=== PATIENT | female | born 1955 | race American Indian/Alaskan Native ===

== ENCOUNTER 2017-09-20 10:38 | Inpatient (IN) | payer OTHER, MEDICAID ==
[2017-09-20] MEDS ORDERED: Albuterol/Ipratropium 3.0-0.5 MG/3 ML Neb Soln NEB ONE (11:03)
[2017-09-20 12:54] LABS: CHLORIDE,CL 99 mmol/L (101-111); SODIUM,NA 134 mmol/L (135-145)
[2017-09-20] MEDS ORDERED: Iopamidol 612 MG/ML 75 ML Bottle IVPUSH ONE (12:55)
[2017-09-20] MEDS ORDERED: Levofloxacin 500 MG Tab PO ONE (13:58)
--- NOTE | 2017-09-20 14:30 | EDM.PDOC ---
Scribed by Velvet Wiley 09/20/17 [id number] for Peggy Patten PA-C ED HPI GENERAL MEDICAL PROBLEM - General Chief Complaint: Respiratory Problem Stated Complaint: HARD TIME BREATHING HAS COLD CHEST HURTIN no phone Time Seen by Provider: 09/20/17 12:00 Source of Information: Reports: Patient, RN, RN Notes Reviewed History Limitations: Reports: No Limitations - History of Present Illness INITIAL COMMENTS - FREE TEXT/NARRATIVE: Patient presents with cough for 2 weeks that is productive of yellow. She has a fever and shortness of breath at times. She also has chest pain only with cough. She is a smoker. She has no respiratory history. Unsure of last chest pain. Appetite is okay. Onset: Gradual Duration: Getting Worse Location: Reports: Chest Quality: Reports: Ache Severity: Moderate Improves with: Reports: None Worsens with: Reports: None Associated Symptoms: Reports: No Other Symptoms Chest Pain Score (Numeric/FACES): 8 - Related Data Allergies Allergy/AdvReac Type Severity Reaction Status Date / Time No Known Allergies Allergy Verified 09/20/17 10:53 Home Meds: Home Meds Aspirin [Children's Aspirin] 81 mg PO DAILY 06/07/13 [History] FLUoxetine HCl [Fluoxetine HCl] 2 cap PO DAILY 07/26/14 [History] Lisinopril 15 tab PO DAILY 07/27/14 [History] Past Medical History HEENT History: Reports: None Cardiovascular History: Reports: Hypertension Respiratory History: Reports: None Gastrointestinal History: Reports: None Genitourinary History: Reports: None 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 Musculoskeletal History: Reports: None Neurological History: Reports: None Psychiatric History: Reports: Depression Endocrine/Metabolic History: Reports: None Hematologic History: Reports: None Immunologic History: Reports: None Oncologic (Cancer) History: Reports: None Dermatologic History: Reports: None - Infectious Disease History Infectious Disease History: Reports: Chicken Pox, Shingles - Past Surgical History Head Surgeries/Procedures: Reports: None Musculoskeletal Surgical History: Reports: Shoulder Surgery Social & Family History - Family History Family Medical History: Noncontributory - Tobacco Use Smoking Status *Q: Current Every Day Smoker Years of Tobacco use: 42 Packs/Tins Daily: 0.5 - Caffeine Use Caffeine Use: Reports: Coffee - Recreational Drug Use Recreational Drug Use: No - Living Situation & Occupation Living situation: Reports: with Family ED ROS GENERAL - Review of Systems Review Of Systems: ROS reveals no pertinent complaints other than HPI. ED EXAM, GENERAL - Physical Exam Exam: See Below Exam Limited By: No Limitations General Appearance: Other (thin) Eye Exam: Bilateral Eye: Normal Inspection Ears: Normal External Exam, Normal Canal, Hearing Grossly Normal, Normal TMs Nose: Normal Inspection, Normal Mucosa, No Blood Throat/Mouth: Normal Inspection, Normal Lips, Normal Teeth, Normal Gums, Normal Oropharynx, Normal Voice, No Airway Compromise Head: Atraumatic, Normocephalic Neck: Normal Inspection, Supple, Non-Tender, Full Range of Motion Respiratory/Chest: Other (diminished rales right) Cardiovascular: Regular Rate, Rhythm GI/Abdominal: Normal Bowel Sounds, Soft, Non-Tender, No Organomegaly, No Distention, No Abnormal Bruit, No Mass (Female) Exam: Deferred Rectal (Female) Exam: Deferred Back Exam: Normal Inspection, Full Range of Motion, NT Extremities: Normal Inspection, Normal Range of Motion, Non-Tender, Normal Capillary Refill, No Pedal Edema Neurological: Alert, Oriented, CN II-XII Intact, Normal Cognition, Normal Gait, Normal Reflexes, No Motor/Sensory Deficits Psychiatric: Normal Affect, Normal Mood Skin Exam: Warm, Dry, Intact, Normal Color, No Rash Course - Vital Signs Last Recorded V/S: Last Vital Signs Temp 99.6 F 09/20/17 14:13 Pulse 81 09/20/17 14:13 Resp 20 09/20/17 14:13 BP 107/45 L 09/20/17 14:13 Pulse Ox 93 L 09/20/17 14:13 - Orders/Labs/Meds Orders: Active Orders 24 hr Category Date Time Status EKG 12 Lead [EKG Documentation Completion] [RC] URGENT Care 09/20/17 12:16 Active RT Aerosol Therapy [RC] ASDIRECTED Care 09/20/17 11:03 Active CULTURE BLOOD [BC] Stat Lab 09/20/17 14:08 Received CULTURE BLOOD [BC] Stat Lab 09/20/17 14:12 Received LACTIC ACID [CHEM] Stat Lab 09/20/17 14:08 Received Blood Culture x2 Reflex Set [OM.PC] Stat Oth 09/20/17 13:58 Ordered Labs: Laboratory Tests 09/20/17 09/20/17 09/20/17 Range/Units 12:22 12:22 12:22 WBC 12.5 H (5.0-10.0) 10^3/uL RBC 4.83 (4.2-5.4) 10^6/uL Hgb 15.2 (12.0-16.0) g/dL Hct 45.4 (37.0-47.0) % MCV 94.0 (80-100) fL MCH 31.5 (27.0-34.0) pg MCHC 33.5 (33.0-35.0) g/dL Plt Count 221 (150-450) 10^3/uL Neut % (Auto) 71.5 (42.2-75.2) % Lymph % (Auto) 17.5 L (20.5-50.1) % [place] % (Auto) 9.5 H (2-8) % Eos % (Auto) 1.0 (1.0-3.0) % Baso % (Auto) 0.5 (0.0-1.0) % D-Dimer, Quantitative 323 (0-400) ng/mL Sodium 134 L (135-145) mmol/L Potassium 3.6 (3.6-5.0) mmol/L Chloride 99 L (101-111) mmol/L Carbon Dioxide 25.0 (21.0-31.0) mmol/L Anion Gap 13.6 BUN 14 (7-18) mg/dL Creatinine 0.7 (0.6-1.3) mg/dL Est Cr Clr Drug Dosing 61.39 mL/min Estimated GFR (MDRD) > 60 BUN/Creatinine Ratio 20.00 Glucose 156 H (74-105) mg/dL Calcium 9.0 (8.4-10.2) mg/dl Total Bilirubin 0.6 (0.2-1.0) mg/dL AST 42 (10-42) IU/L ALT 30 (10-60) IU/L Alkaline Phosphatase 87 (42-121) IU/L B-Natriuretic Peptide 18 (0-100) pg/ml Total Protein 8.8 H (6.7-8.2) g/dl Albumin 3.5 (3.2-5.5) g/dl Globulin 5.3 Albumin/Globulin Ratio 0.66 Meds: Medications Discontinued Medications Generic Name Dose Route Start Last Admin Trade Name Freq PRN Reason Stop Dose Admin Albuterol/Ipratropium 3 ml 09/20/17 11:03 09/20/17 11:11 Duoneb 3.0-0.5 Mg/3 Ml NEB 09/20/17 11:04 3 ml ONETIME ONE Administration Iopamidol 75 ml 09/20/17 12:55 09/20/17 13:33 Isovue-300 (61%) IVPUSH 09/20/17 12:56 75 ml ONETIME ONE Administration Levofloxacin 500 mg 09/20/17 13:58 09/20/17 14:10 Levaquin PO 09/20/17 13:59 500 mg ONETIME ONE Administration - Radiology Interpretation Free Text/Narrative:: Chest x-ray: A2.6cmnoncalcified right pulmonary nodule. CT scan of chest is suggested. See rad report. Chest CT: A2.1cm solid nodule in the right midlung field. A primary lung neoplasm should be considered.Left upper lobe infiltrate suggestive of pneumonia. No evidence for hilar or mediastinal adenopathy. See rad report. - Re-Assessments/Exams Free Text/Narrative Re-Assessment/Exam: 09/20/17 14:[address] Merritt, accepting of patient for admission for further evaluation and management of pnuemonia. Patient has been made aware of finding on right pulmonary mass and need for followup Departure - Departure Time of Disposition: 14:25 Disposition: DC/Tfer to Acute Hospital 02 Condition: Fair Clinical Impression: Pulmonary nodule less than 6 cm determined by computed tomography of lung, Hypoxia, Tobacco abuse LLL pneumonia Qualifiers: Pneumonia type: due to unspecified organism Qualified Code(s): J18.1 - Lobar pneumonia, unspecified organism HTN (hypertension) Qualifiers: Hypertension type: essential hypertension Qualified Code(s): I10 - Essential ( primary) hypertension - Discharge Information Forms: ED Department Discharge - My Orders Last 24 Hours: My Active Orders 09/20/17 11:03 RT Aerosol Therapy [RC] ASDIRECTED 09/20/17 12:16 EKG 12 Lead [EKG Documentation Completion] [RC] URGENT 09/20/17 13:58 Blood Culture x2 Reflex Set [OM.PC] Stat 09/20/17 14:08 CULTURE BLOOD [BC] Stat LACTIC ACID [CHEM] Stat 09/20/17 14:12 CULTURE BLOOD [BC] Stat - Assessment/Plan Last 24 Hours: My Active Orders 09/20/17 11:03 RT Aerosol Therapy [RC] ASDIRECTED 09/20/17 12:16 EKG 12 Lead [EKG Documentation Completion] [RC] URGENT 09/20/17 13:58 Blood Culture x2 Reflex Set [OM.PC] Stat 09/20/17 14:08 CULTURE BLOOD [BC] Stat LACTIC ACID [CHEM] Stat 09/20/17 14:12 CULTURE BLOOD [BC] Stat I have read and agree with the documentation that has been completed regarding this visit. By signing this record, I attest that the documentation was completed in my physical presence and is an accurate record of the encounter.
[2017-09-20] MEDS ORDERED: Ibuprofen 400 MG Tab PO PRN (15:53)
[2017-09-20] MEDS ORDERED: Acetaminophen 325 MG Tab PO PRN (15:53)
[2017-09-20] MEDS ORDERED: Docusate Sodium 100 MG Cap PO PRN (15:53)
[2017-09-20] MEDS ORDERED: Zolpidem 5 MG Tab PO PRN (15:53)
[2017-09-20] MEDS ORDERED: Sodium Chloride 0.9% 10 ML Syringe FLUSH PRN (15:53)
--- NOTE | 2017-09-20 16:10 | PCM.HP ---
H&P History of Present Illness - General Date of Service: 09/20/17 Admit Problem/Dx: Admission Diagnosis/Problem Admission Diagnosis/Problem Pneumonia Source of Information: Patient - History of Present Illness Initial Comments - Free Text/Narative: 61-year-old lady with a history of hypertension, depression. The patient presented with nonproductive cough, subjective fever. Symptoms started about 2-3 days prior to admission. She has been smoking up until that point. Associated with shortness of breath. Worse with activity. Has chest pain with coughing but not otherwise. No abdominal Pain, no leg swelling, Chest Pain Score (Numeric/FACES): 8 - Related Data Allergies/Adverse Reactions: Allergies Allergy/AdvReac Type Severity Reaction Status Date / Time No Known Allergies Allergy Verified 09/20/17 15:02 Home Medications: Home Meds Aspirin [Children's Aspirin] 81 mg PO DAILY 06/07/13 [History] FLUoxetine HCl [Fluoxetine HCl] 3 cap PO DAILY 07/26/14 [History] Lisinopril 15 tab PO DAILY 07/27/14 [History] Past Medical History HEENT History: Reports: None, Other (See Below) Other HEENT History: wears glasses Cardiovascular History: Reports: Hypertension Respiratory History: Reports: None, Other (See Below) Other Respiratory History: Smoker x 42 years Gastrointestinal History: Reports: None Genitourinary History: Reports: None 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 Musculoskeletal History: Reports: None Neurological History: Reports: None Psychiatric History: Reports: Depression Endocrine/Metabolic History: Reports: None Hematologic History: Reports: None Immunologic History: Reports: None Oncologic (Cancer) History: Reports: None Dermatologic History: Reports: None - Infectious Disease History Infectious Disease History: Reports: Other (See Below) Other Infectious Disease History: Pt unsure - Past Surgical History Head Surgeries/Procedures: Reports: None HEENT Surgical History: Reports: None Cardiovascular Surgical History: Reports: None Respiratory Surgical History: Reports: None GI Surgical History: Reports: None Female Surgical History: Reports: None Musculoskeletal Surgical History: Reports: Shoulder Surgery Social & Family History - Family History Family Medical History: Noncontributory - Tobacco Use Smoking Status *Q: Former Smoker Years of Tobacco use: 42 Packs/Tins Daily: 1 Used Tobacco, but Quit: Yes Month/Year Tobacco Last Used: September/2017 Second Hand Smoke Exposure: No - Caffeine Use Caffeine Use: Reports: Coffee, Soda - Alcohol Use Days Per Week of Alcohol Use: 3 Number of Drinks Per Day: 1 Total Drinks Per Week: 3 Date of Last Drink: 09/17/17 Time of Last Drink: 21:00 - Recreational Drug Use Recreational Drug Use: No - Living Situation & Occupation Living situation: Reports: with Family H&P Review of Systems - Review of Systems: Review Of Systems: See Below (Subjective) General: Reports: Fever Pulmonary: Reports: Shortness of Breath, Pleuritic Chest Pain, Cough. Denies: Wheezing, Sputum, Hemoptysis Cardiovascular: Reports: Chest Pain (With coughing) Gastrointestinal: Denies: Abdominal Pain Genitourinary: Denies: Dysuria Neurological: Denies: Confusion Exam - Exam Exam: See Below - Vital Signs Vital Signs: Last Vital Signs Temp 37.6 C 09/20/17 14:13 Pulse 81 09/20/17 14:13 Resp 20 09/20/17 14:13 BP 107/45 L 09/20/17 14:13 Pulse Ox 93 L 09/20/17 14:13 Weight: 57.243 kg - Exam Quality Assessment: Supplemental Oxygen General: Alert, Oriented Neck: Supple Lungs: Clear to Auscultation, Normal Respiratory Effort Cardiovascular: Regular Rate, Regular Rhythm GI/Abdominal Exam: Normal Bowel Sounds, Soft, Non-Tender, No Distention Extremities: No Pedal Edema Skin: Warm, Dry, Intact Neuro Extensive - Mental Status: Alert, Oriented x3, Normal Mood/Affect Psychiatric: Alert, Normal Affect, Normal Mood - Patient Data Lab Results Last 24 hrs: Laboratory Results - last 24 hr 09/20/17 09/20/17 09/20/17 Range/Units 12:22 12:22 12:22 WBC 12.5 H (5.0-10.0) 10^3/uL RBC 4.83 (4.2-5.4) 10^6/uL Hgb 15.2 (12.0-16.0) g/dL Hct 45.4 (37.0-47.0) % MCV 94.0 (80-100) fL MCH 31.5 (27.0-34.0) pg MCHC 33.5 (33.0-35.0) g/dL Plt Count 221 (150-450) 10^3/uL Neut % (Auto) 71.5 (42.2-75.2) % Lymph % (Auto) 17.5 L (20.5-50.1) % [place] % (Auto) 9.5 H (2-8) % Eos % (Auto) 1.0 (1.0-3.0) % Baso % (Auto) 0.5 (0.0-1.0) % D-Dimer, Quantitative 323 (0-400) ng/mL Sodium 134 L (135-145) mmol/L Potassium 3.6 (3.6-5.0) mmol/L Chloride 99 L (101-111) mmol/L Carbon Dioxide 25.0 (21.0-31.0) mmol/L Anion Gap 13.6 BUN 14 (7-18) mg/dL Creatinine 0.7 (0.6-1.3) mg/dL Est Cr Clr Drug Dosing 61.39 mL/min Estimated GFR (MDRD) > 60 BUN/Creatinine Ratio 20.00 Glucose 156 H (74-105) mg/dL Lactic Acid (0.5-2.2) mmol/L Calcium 9.0 (8.4-10.2) mg/dl Total Bilirubin 0.6 (0.2-1.0) mg/dL AST 42 (10-42) IU/L ALT 30 (10-60) IU/L Alkaline Phosphatase 87 (42-121) IU/L B-Natriuretic Peptide 18 (0-100) pg/ml Total Protein 8.8 H (6.7-8.2) g/dl Albumin 3.5 (3.2-5.5) g/dl Globulin 5.3 Albumin/Globulin Ratio 0.66 /18 Range/Units 14:08 WBC (5.0-10.0) 10^3/uL RBC (4.2-5.4) 10^6/uL Hgb (12.0-16.0) g/dL Hct (37.0-47.0) % MCV (80-100) fL MCH (27.0-34.0) pg MCHC (33.0-35.0) g/dL Plt Count (150-450) 10^3/uL Neut % (Auto) (42.2-75.2) % Lymph % (Auto) (20.5-50.1) % [place] % (Auto) (2-8) % Eos % (Auto) (1.0-3.0) % Baso % (Auto) (0.0-1.0) % D-Dimer, Quantitative (0-400) ng/mL Sodium (135-145) mmol/L Potassium (3.6-5.0) mmol/L Chloride (101-111) mmol/L Carbon Dioxide (21.0-31.0) mmol/L Anion Gap BUN (7-18) mg/dL Creatinine (0.6-1.3) mg/dL Est Cr Clr Drug Dosing mL/min Estimated GFR (MDRD) BUN/Creatinine Ratio Glucose (74-105) mg/dL Lactic Acid 0.9 (0.5-2.2) mmol/L Calcium (8.4-10.2) mg/dl Total Bilirubin (0.2-1.0) mg/dL AST (10-42) IU/L ALT (10-60) IU/L Alkaline Phosphatase (42-121) IU/L B-Natriuretic Peptide (0-100) pg/ml Total Protein (6.7-8.2) g/dl Albumin (3.2-5.5) g/dl Globulin Albumin/Globulin Ratio Result Diagrams: 09/20/17 12:22 09/20/17 12:22 Problem List Initiated/Reviewed/Updated: Yes Orders Last 24hrs: Active Orders 24 hr Category Date Time Status Patient Status [ADT] Routine ADT 09/20/17 15:53 Ordered EKG 12 Lead [EKG Documentation Completion] [RC] URGENT Care 09/20/17 12:16 Active Oxygen Therapy [RC] PRN Care 09/20/17 15:53 Ordered Peripheral IV Care [RC] . DIRECTED Care 09/20/17 15:55 Ordered RT Aerosol Therapy [RC] ASDIRECTED Care 09/20/17 11:03 Active Up ad Tracie [RC] ASDIRECTED Care 09/20/17 15:53 Ordered VTE/DVT Education [RC] PER UNIT ROUTINE Care 09/20/17 15:53 Ordered Vital Signs [RC] Q4H Care 09/20/17 15:53 Ordered Regular Diet [DIET] Diet 09/20/17 Dinner Ordered CBC WITH AUTO DIFF [HEME] AM Lab 09/21/17 05:11 Ordered CULTURE BLOOD [BC] Stat Lab 09/20/17 14:08 Received CULTURE BLOOD [BC] Stat Lab 09/20/17 14:12 Received CULTURE SPUTUM + SMEAR [RM] Routine Lab 09/20/17 15:50 Ordered HEPATIC FUNCTION PANEL,HFP [CHEM] AM Lab 09/21/17 05:11 Ordered Acetaminophen [Tylenol] Med 09/20/17 15:53 Ordered 650 mg PO Q4H PRN Aspirin Med 09/21/17 09:00 Ordered 81 mg PO DAILY Docusate Sodium [Colace] Med 09/20/17 15:53 Ordered 100 mg PO BID PRN FLUoxetine HCl [Fluoxetine HCl] Med 09/21/17 09:00 Ordered 3 cap PO DAILY Heparin Sodium Med 09/20/17 22:00 Ordered 5,000 units SUBCUT Q8HR Ibuprofen [Motrin] Med 09/20/17 15:53 Ordered 400 mg PO Q6H PRN Levofloxacin/Dextrose 5%-Water [Levaquin in D5W 750 MG/ Med 09/21/17 16:00 Ordered 150 ML] 750 mg Premix Bag 1 bag IV Q24H Lisinopril [Prinivil] Med 09/21/17 09:00 Ordered 15 tab PO DAILY Sodium Chloride 0.9% [Saline Flush] Med 09/20/17 15:53 Ordered 10 ml FLUSH ASDIRECTED PRN Zolpidem [Ambien] Med 09/20/17 15:53 Ordered 5 mg PO BEDTIME PRN Antiembolic Hose [OM.PC] Per Unit Routine Oth 09/20/17 15:53 Ordered Blood Culture x2 Reflex Set [OM.PC] Stat Oth 09/20/17 13:58 Ordered Peripheral IV Insertion Adult [OM.PC] Routine Oth 09/20/17 15:53 Ordered Saline Lock Insert [OM.PC] Routine Oth 09/20/17 15:53 Ordered Sequential Compression Device [OM.PC] Per Unit Routine Oth 09/20/17 15:54 Ordered Resuscitation Status Routine Resus Stat 09/20/17 15:53 Ordered Medication Orders Acetaminophen (Tylenol) 650 mg PO Q4H PRN PRN Reason: Pain (Mild 1-3)/fever Aspirin (Aspirin) 81 mg PO DAILY NIKKI Docusate Sodium (Colace) 100 mg PO BID PRN PRN Reason: Constipation Heparin Sodium (Porcine) (Heparin Sodium) 5,000 units SUBCUT Q8HR NIKKI Levofloxacin/Dextrose 750 mg/ (Premix) 150 mls @ 100 mls/hr IV Q24H NIKKI Ibuprofen (Motrin) 400 mg PO Q6H PRN PRN Reason: Pain (mild 1-3) Lisinopril (Prinivil) mg PO DAILY NIKKI Non-Formulary Medication (Fluoxetine Hcl [Fluoxetine Hcl]) 3 cap PO DAILY NIKKI Sodium Chloride (Saline Flush) 10 ml FLUSH ASDIRECTED PRN PRN Reason: Keep Vein Open Zolpidem Tartrate (Ambien) 5 mg PO BEDTIME PRN PRN Reason: Sleep Assessment/Plan Comment:: The patient is a 61-year-old lady who presented with subjective fever, cough, shortness of breath. Community-acquired pneumonia Appears to have left upper lobe infiltrate, leukocytosis, low-grade temperature. Will obtain blood culture, sputum culture Start treatment empirically with levofloxacin for community-acquired pneumonia Lung mass noted on CT With history of smoking concern for malignancy We'll set up follow-up CT and possible biopsy. Hypertension Treat with lisinopril Depression Treat with fluoxetine DVT prophylaxis with SQ heparin
[2017-09-20] MEDS: Heparin Sodium 5,000 Units/ML Vial SUBCUT SCH (21:33)
[2017-09-21] MEDS: Heparin Sodium 5,000 Units/ML Vial SUBCUT SCH ×3 (06:44→21:16)
[2017-09-21] MEDS ORDERED: Lisinopril 20 MG Tab PO SCH (09:00)
[2017-09-21] MEDS: FLUoxetine 10 MG Cap PO SCH (09:43)
[2017-09-21] MEDS: Lisinopril 20 MG Tab PO SCH (09:44)
[2017-09-21] MEDS: Aspirin 81 MG Tab.Chew PO SCH (09:44)
--- NOTE | 2017-09-21 11:01 | PCM.PN ---
- General Info Date of Service: 09/21/17 Admission Dx/Problem (Free Text): Admission Diagnosis/Problem Admission Diagnosis/Problem Pneumonia Subjective Update: Feeling better, no significant shortness of breath. Still has a cough but nonproductive. No fever overnight. No chest pain, no abdominal pain. - Review of Systems General: Denies: Fever, Weakness Pulmonary: Reports: Cough. Denies: Shortness of Breath Gastrointestinal: Denies: Abdominal Pain Genitourinary: Denies: Dysuria Neurological: Denies: Confusion Psychiatric: Denies: Anxiety - Patient Data Vitals - Most Recent: Last Vital Signs Temp 36.7 C 09/21/17 08:00 Pulse 81 09/21/17 08:00 Resp 18 09/21/17 08:00 BP 112/52 L 09/21/17 09:44 Pulse Ox 96 09/21/17 08:00 Weight - Most Recent: 57.243 kg I&O - Last 24 Hours: Intake & Output 09/20/17 09/21/17 09/21/17 22:59 06:59 14:59 Intake Total 440 400 Output Total 600 Balance 440 -200 Lab Results Last 24 Hours: Laboratory Results - last 24 hr 09/20/17 09/20/17 09/20/17 Range/Units 12:22 12:22 12:22 WBC 12.5 H (5.0-10.0) 10^3/uL RBC 4.83 (4.2-5.4) 10^6/uL Hgb 15.2 (12.0-16.0) g/dL Hct 45.4 (37.0-47.0) % MCV 94.0 (80-100) fL MCH 31.5 (27.0-34.0) pg MCHC 33.5 (33.0-35.0) g/dL Plt Count 221 (150-450) 10^3/uL Neut % (Auto) 71.5 (42.2-75.2) % Lymph % (Auto) 17.5 L (20.5-50.1) % [place] % (Auto) 9.5 H (2-8) % Eos % (Auto) 1.0 (1.0-3.0) % Baso % (Auto) 0.5 (0.0-1.0) % D-Dimer, Quantitative 323 (0-400) ng/mL Sodium 134 L (135-145) mmol/L Potassium 3.6 (3.6-5.0) mmol/L Chloride 99 L (101-111) mmol/L Carbon Dioxide 25.0 (21.0-31.0) mmol/L Anion Gap 13.6 BUN 14 (7-18) mg/dL Creatinine 0.7 (0.6-1.3) mg/dL Est Cr Clr Drug Dosing 61.39 mL/min Estimated GFR (MDRD) > 60 BUN/Creatinine Ratio 20.00 Glucose 156 H (74-105) mg/dL Lactic Acid (0.5-2.2) mmol/L Calcium 9.0 (8.4-10.2) mg/dl Total Bilirubin 0.6 (0.2-1.0) mg/dL Direct Bilirubin (0.0-0.2) mg/dL Indirect Bilirubin AST 42 (10-42) IU/L ALT 30 (10-60) IU/L Alkaline Phosphatase 87 (42-121) IU/L B-Natriuretic Peptide 18 (0-100) pg/ml Total Protein 8.8 H (6.7-8.2) g/dl Albumin 3.5 (3.2-5.5) g/dl Globulin 5.3 Albumin/Globulin Ratio 0.66 18 09/21/17 09/21/17 Range/Units 14:08 06:20 06:20 WBC 10.3 H (5.0-10.0) 10^3/uL RBC 4.80 (4.2-5.4) 10^6/uL Hgb 14.9 (12.0-16.0) g/dL Hct 45.8 (37.0-47.0) % MCV 95.4 (80-100) fL MCH 31.0 (27.0-34.0) pg MCHC 32.5 L (33.0-35.0) g/dL Plt Count 216 (150-450) 10^3/uL Neut % (Auto) 72.8 (42.2-75.2) % Lymph % (Auto) 14.5 L (20.5-50.1) % [place] % (Auto) 9.0 H (2-8) % Eos % (Auto) 3.2 H (1.0-3.0) % Baso % (Auto) 0.5 (0.0-1.0) % D-Dimer, Quantitative (0-400) ng/mL Sodium (135-145) mmol/L Potassium (3.6-5.0) mmol/L Chloride (101-111) mmol/L Carbon Dioxide (21.0-31.0) mmol/L Anion Gap BUN (7-18) mg/dL Creatinine (0.6-1.3) mg/dL Est Cr Clr Drug Dosing mL/min Estimated GFR (MDRD) BUN/Creatinine Ratio Glucose (74-105) mg/dL Lactic Acid 0.9 (0.5-2.2) mmol/L Calcium (8.4-10.2) mg/dl Total Bilirubin 0.5 (0.2-1.0) mg/dL Direct Bilirubin 0.2 (0.0-0.2) mg/dL Indirect Bilirubin 0.3 AST 35 (10-42) IU/L ALT 28 (10-60) IU/L Alkaline Phosphatase 74 (42-121) IU/L B-Natriuretic Peptide (0-100) pg/ml Total Protein 8.3 H (6.7-8.2) g/dl Albumin 3.2 (3.2-5.5) g/dl Globulin 5.1 Albumin/Globulin Ratio 0.63 Petr Results Last 24 Hours: Microbiology 09/21/17 06:58 Gram Stain - Final Sputum - Expectorated Med Orders - Current: Current Medications Acetaminophen (Tylenol) 650 mg PO Q4H PRN PRN Reason: Pain (Mild 1-3)/fever Aspirin (Aspirin) 81 mg PO DAILY [facility] Last Admin: 09/21/17 09:44 Dose: 81 mg Docusate Sodium (Colace) 100 mg PO BID PRN PRN Reason: Constipation Fluoxetine HCl (Prozac) 60 mg PO DAILY [facility] Last Admin: 09/21/17 09:43 Dose: 60 mg Heparin Sodium (Porcine) (Heparin Sodium) 5,000 units SUBCUT Q8HR [facility] Last Admin: 09/21/17 06:44 Dose: 5,000 units Levofloxacin/Dextrose 750 mg/ (Premix) 150 mls @ 100 mls/hr IV Q24H [facility] Ibuprofen (Motrin) 400 mg PO Q6H PRN PRN Reason: Pain (mild 1-3) Lisinopril (Prinivil) 20 mg PO DAILY [facility] Last Admin: 09/21/17 09:44 Dose: 20 mg Sodium Chloride (Saline Flush) 10 ml FLUSH ASDIRECTED PRN PRN Reason: Keep Vein Open Zolpidem Tartrate (Ambien) 5 mg PO BEDTIME PRN PRN Reason: Sleep Discontinued Medications Albuterol/Ipratropium (Duoneb 3.0-0.5 Mg/3 Ml) 3 ml NEB ONETIME ONE Stop: 09/20/17 11:04 Last Admin: 09/20/17 11:11 Dose: 3 ml Iopamidol (Isovue-300 (61%)) 75 ml IVPUSH ONETIME ONE Stop: 09/20/17 12:56 Last Admin: 09/20/17 13:33 Dose: 75 ml Levofloxacin (Levaquin) 500 mg PO ONETIME ONE Stop: 09/20/17 13:59 Last Admin: 09/20/17 14:10 Dose: 500 mg Lisinopril (Prinivil) mg PO DAILY NIKKI - Exam General: Alert, Oriented Neck: Supple Lungs: Clear to Auscultation, Normal Respiratory Effort Cardiovascular: Regular Rate, Regular Rhythm GI/Abdominal Exam: Normal Bowel Sounds, Soft, Non-Tender Extremities: No Pedal Edema - Problem List & Annotations (1) Pneumonia SNOMED Code(s): 571700977 Code(s): J18.9 - PNEUMONIA, UNSPECIFIED ORGANISM Status: Acute Current Visit: Yes - Problem List Review Problem List Initiated/Reviewed/Updated: Yes - My Orders Last 24 Hours: My Active Orders 09/20/17 15:53 Patient Status [ADT] Routine Oxygen Therapy [RC] PRN Up ad Tracie [RC] ASDIRECTED VTE/DVT Education [RC] PER UNIT ROUTINE Vital Signs [RC] Q4H Acetaminophen [Tylenol] 650 mg PO Q4H PRN Docusate Sodium [Colace] 100 mg PO BID PRN Ibuprofen [Motrin] 400 mg PO Q6H PRN Sodium Chloride 0.9% [Saline Flush] 10 ml FLUSH ASDIRECTED PRN Zolpidem [Ambien] 5 mg PO BEDTIME PRN Antiembolic Hose [OM.PC] Per Unit Routine Peripheral IV Insertion Adult [OM.PC] Routine Saline Lock Insert [OM.PC] Routine Resuscitation Status Routine 09/20/17 15:55 Peripheral IV Care [RC] 09,21 09/20/17 22:00 Heparin Sodium 5,000 units SUBCUT Q8HR 09/20/17 Dinner Regular Diet [DIET] 09/21/17 06:58 CULTURE SPUTUM + SMEAR [RM] Routine 09/21/17 09:00 Aspirin 81 mg PO DAILY FLUoxetine [PROzac] 60 mg PO DAILY Lisinopril [Prinivil] 20 mg PO DAILY 09/21/17 14:00 Levofloxacin/Dextrose 5%-Water [Levaquin in D5W 750 MG/150 ML] 750 mg Premix Bag 1 bag IV Q24H - Plan Plan:: The patient is a 61-year-old lady who presented with subjective fever, cough, shortness of breath. Community-acquired pneumonia Appears to have left upper lobe infiltrate, leukocytosis, low-grade temperature. Pending blood culture, sputum culture Started treatment empirically with levofloxacin for community-acquired pneumonia Lung mass noted on CT With history of smoking concern for malignancy We'll set up follow-up CT and possible biopsy. Hypertension Treat with lisinopril Depression Treat with fluoxetine DVT prophylaxis with SQ heparin
[2017-09-21] MEDS ORDERED: Levofloxacin/Dextrose 5%-Water 750 MG in Premix Bag 1 BAG IV SCH (14:00)
[2017-09-22] MEDS: Heparin Sodium 5,000 Units/ML Vial SUBCUT SCH (05:31)
[2017-09-22 06:58] LABS: CHLORIDE,CL 99 mmol/L (101-111); SODIUM,NA 136 mmol/L (135-145)
[2017-09-22 08:06] VITALS: BP 116/62
[2017-09-22] MEDS: FLUoxetine 10 MG Cap PO SCH (08:57)
[2017-09-22] MEDS: Aspirin 81 MG Tab.Chew PO SCH (08:57)
[2017-09-22] MEDS: Lisinopril 20 MG Tab PO SCH (08:57)
--- NOTE | 2017-09-22 10:31 | PCM.DCSUM1 ---
Discharge Summary - Hospital Course Free Text/Narrative:: The patient is a 61-year-old lady who presented with subjective fever, cough, shortness of breath. Community-acquired pneumonia on CT chest Appeared to have left upper lobe infiltrate, on admission had leukocytosis, low-grade temperature. Pending blood culture, sputum culture Started treatment empirically with levofloxacin for community-acquired pneumonia Finished treatment as outpatient with oral antibiotic Lung mass noted on CT With history of smoking concern for malignancy CT was post to [facility]. We'll refer for a possible IR biopsy. Hypertension Treat with lisinopril Depression Treat with fluoxetine - Discharge Data Discharge Date: 09/22/17 Discharge Disposition: Home, Self-Care 01 Condition: Fair - Discharge Diagnosis/Problem(s) (1) Pneumonia SNOMED Code(s): 912078223 ICD Code: J18.9 - PNEUMONIA, UNSPECIFIED ORGANISM Status: Acute Current Visit: Yes - Patient Instructions Diet: Heart Healthy Diet Activity: As Tolerated - Discharge Plan Prescriptions/Med Rec: Levofloxacin [Levaquin] 500 mg PO DAILY #7 tablet Home Medications: Home Meds Aspirin 81 mg PO DAILY 06/07/13 [History] FLUoxetine HCl [Fluoxetine HCl] 3 cap PO DAILY 07/26/14 [History] Lisinopril 15 tab PO DAILY 07/27/14 [History] Levofloxacin [Levaquin] 500 mg PO DAILY #7 tablet 09/22/17 [Rx] Forms: ED Department Discharge Referrals: PCP,None [Primary Care Provider] - (in 3-4 days) - Discharge Summary/Plan Comment DC Time >30 min.: Yes (Extra time to arrange referral for IR biopsy) - General Info Date of Service: 09/22/17 - Review of Systems General: Denies: Fever Pulmonary: Denies: Shortness of Breath Cardiovascular: Denies: Chest Pain Gastrointestinal: Denies: Abdominal Pain Neurological: Denies: Confusion - Patient Data Vitals - Most Recent: Last Vital Signs Temp 36.7 C 09/22/17 08:05 Pulse 82 09/22/17 08:05 Resp 20 09/22/17 08:05 BP 116/62 09/22/17 08:57 Pulse Ox 91 L 09/22/17 08:05 Weight - Most Recent: 57.243 kg I&O - Last 24 hours: Intake & Output 09/21/17 09/22/17 09/22/17 22:59 06:59 14:59 Intake Total 1430 250 Output Total 900 700 Balance 530 -450 Lab Results - Last 24 hrs: Laboratory Results - last 24 hr 09/22/17 09/22/17 Range/Units 05:45 05:45 WBC 7.5 (5.0-10.0) 10^3/uL RBC 4.83 (4.2-5.4) 10^6/uL Hgb 15.2 (12.0-16.0) g/dL Hct 46.0 (37.0-47.0) % MCV 95.2 (80-100) fL MCH 31.5 (27.0-34.0) pg MCHC 33.0 (33.0-35.0) g/dL Plt Count 229 (150-450) 10^3/uL Neut % (Auto) 57.4 (42.2-75.2) % Lymph % (Auto) 26.5 (20.5-50.1) % [place] % (Auto) 10.8 H (2-8) % Eos % (Auto) 4.4 H (1.0-3.0) % Baso % (Auto) 0.9 (0.0-1.0) % Sodium 136 (135-145) mmol/L Potassium 3.9 (3.6-5.0) mmol/L Chloride 99 L (101-111) mmol/L Carbon Dioxide 28.0 (21.0-31.0) mmol/L Anion Gap 12.9 BUN 11 (7-18) mg/dL Creatinine 0.6 (0.6-1.3) mg/dL Est Cr Clr Drug Dosing 71.62 mL/min Estimated GFR (MDRD) > 60 Glucose 104 (74-105) mg/dL Calcium 9.3 (8.4-10.2) mg/dl RAKESH Results - Last 24 hrs: Microbiology 09/21/17 06:58 Gram Stain - Final Sputum - Expectorated Sputum Culture - Preliminary Normal Imani 09/20/17 14:12 Aerobic Blood Culture - Preliminary Blood - Venous - Lab Draw NO GROWTH AFTER 1 DAY Anaerobic Blood Culture - Preliminary NO GROWTH AFTER 1 DAY 09/20/17 14:08 Aerobic Blood Culture - Preliminary Blood - Venous NO GROWTH AFTER 1 DAY Anaerobic Blood Culture - Preliminary NO GROWTH AFTER 1 DAY Med Orders - Current: Current Medications Acetaminophen (Tylenol) 650 mg PO Q4H PRN PRN Reason: Pain (Mild 1-3)/fever Aspirin (Aspirin) 81 mg PO DAILY [facility] Last Admin: 09/22/17 08:57 Dose: 81 mg Docusate Sodium (Colace) 100 mg PO BID PRN PRN Reason: Constipation Fluoxetine HCl (Prozac) 60 mg PO DAILY [facility] Last Admin: 09/22/17 08:57 Dose: 60 mg Heparin Sodium (Porcine) (Heparin Sodium) 5,000 units SUBCUT Q8HR [facility] Last Admin: 09/22/17 05:31 Dose: 5,000 units Levofloxacin/Dextrose 750 mg/ (Premix) 150 mls @ 100 mls/hr IV Q24H [facility] Last Infusion: 09/21/17 17:09 Dose: Infused Ibuprofen (Motrin) 400 mg PO Q6H PRN PRN Reason: Pain (mild 1-3) Lisinopril (Prinivil) 20 mg PO DAILY [facility] Last Admin: 09/22/17 08:57 Dose: 20 mg Sodium Chloride (Saline Flush) 10 ml FLUSH ASDIRECTED PRN PRN Reason: Keep Vein Open Last Admin: 09/21/17 22:27 Dose: 10 ml Zolpidem Tartrate (Ambien) 5 mg PO BEDTIME PRN PRN Reason: Sleep Discontinued Medications Albuterol/Ipratropium (Duoneb 3.0-0.5 Mg/3 Ml) 3 ml NEB ONETIME ONE Stop: 09/20/17 11:04 Last Admin: 09/20/17 11:11 Dose: 3 ml Iopamidol (Isovue-300 (61%)) 75 ml IVPUSH ONETIME ONE Stop: 09/20/17 12:56 Last Admin: 09/20/17 13:33 Dose: 75 ml Levofloxacin (Levaquin) 500 mg PO ONETIME ONE Stop: 09/20/17 13:59 Last Admin: 09/20/17 14:10 Dose: 500 mg Lisinopril (Prinivil) mg PO DAILY NIKKI - Exam General: Reports: Alert, Oriented Neck: Reports: Supple Lungs: Reports: Clear to Auscultation, Normal Respiratory Effort Cardiovascular: Reports: Regular Rate, Regular Rhythm Extremities: No Pedal Edema
--- NOTE | 2017-09-23 07:59 | EKG ---
09/20/2017- RULA CRUZ - FINDINGS: EKG per my reading, shows sinus rhythm at the rate of 84. MODL /[id number]
== END 2017-09-22 12:20 | disposition home or self-care (01) | DRG 194 ==
LOC: DL.ED 10:38 → UNDOADMIN 14:51 → DL.MS 14:51
PROVIDERS: ADMIT Internal Medicine; ATTEND Internal Medicine
DX: J18.9 Pneumonia, unspecified organism (principal); R91.1 Solitary pulmonary nodule; R09.02 Hypoxemia; C34.91 Malignant neoplasm of unspecified part of right bronchus or lung; I10 Essential (primary) hypertension; F32.9 Major depressive disorder, single episode, unspecified; F17.210 Nicotine dependence, cigarettes, uncomplicated; Z79.899 Other long term (current) drug therapy; Z79.82 Long term (current) use of aspirin
CPT/HCPCS: 36415; 71046; 71260; 80053; 83605; 83880; 85025; 85379; 87040 ×2; 93005; 93010; 94640; 99285; A9270; Q9967; 80048; 80076; 87070; 87205; J1644; J1956; J7050

== ENCOUNTER 2020-10-18 22:53 | Emergency (ER) | payer MEDICAID ==
[2020-10-19 00:14] LABS: ANION GAP 12.7 mEq/L (7-13); CHLORIDE,CL 100 mmol/L (98-107); SODIUM,NA 135 mmol/L (136-145)
[2020-10-19] MEDS ORDERED: methylPREDNISolone Sodium Succinate 125 MG/2 ML SDV IVPUSH ONE (01:16)
[2020-10-19] MEDS ORDERED: Albuterol/Ipratropium 3.0-0.5 MG/3 ML Neb Soln NEB ONE (01:17)
--- NOTE | 2020-10-19 03:22 | CR ---
PROCEDURE INFORMATION: Exam: XR Chest Exam date and time: 10/18/2020 11:29 PM Age: 64 years old Clinical indication: Shortness of breath; Additional info: SOB, copd TECHNIQUE: Imaging protocol: XR of the chest. Views: 1 view. COMPARISON: CR Chest 1V Frontal 03/26/2019 9:23 AM FINDINGS: Lungs: Stable right lung nodule. New bilateral pulmonary opacities consistent with pneumonia. Pleural spaces: Unremarkable. No pleural effusion. No pneumothorax. Heart/Mediastinum: Unremarkable. No cardiomegaly. Bones/joints: Unremarkable. IMPRESSION: 1. New bilateral pulmonary opacities consistent with pneumonia. 2. Stable right lung nodule.
[2020-10-19] MEDS ORDERED: Levofloxacin 500 MG Tab PO ONE (03:30)
--- NOTE | 2020-10-19 04:03 | EDM.PDOC ---
ED HPI GENERAL MEDICAL PROBLEM - General Chief Complaint: Respiratory Problem Time Seen by Provider: 10/18/20 23:00 Source of Information: Reports: Patient History Limitations: Reports: No Limitations - History of Present Illness INITIAL COMMENTS - FREE TEXT/NARRATIVE: ED with c/o SOB past 4 days. Oxygen at home 2l, EMS report sats 88%Chronic non productive cough, chills yesterday. no nausea or vomiting. Reports no BM x 3 days. Decreased urine output. Using neb 2 times daily - Related Data Allergies Allergy/AdvReac Type Severity Reaction Status Date / Time No Known Allergies Allergy Verified 09/20/17 15:02 Home Meds: Home Meds Aspirin 81 mg PO DAILY 06/07/13 [History] FLUoxetine HCl [Fluoxetine HCl] 3 cap PO DAILY 07/26/14 [History] Lisinopril 15 tab PO DAILY 07/27/14 [History] Albuterol Sulfate [Proair Hfa] 8.5 gm IH ASDIRECTED 03/26/19 [History] Budesonide [Pulmicort] 0.5 mg IH BID 03/26/19 [History] Cholecalciferol (Vitamin D3) [Vitamin D3] 1,000 unit PO DAILY 03/26/19 [History] Ergocalciferol (Vitamin D2) [Vitamin D2] 50 mcg PO WEEKLY 03/26/19 [History] Formoterol Fumarate [Perforomist] 20 mcg IH BID 03/26/19 [History] Tiotropium [Spiriva] 18 mcg INH BID 03/26/19 [History] Past Medical History HEENT History: Reports: None, Other (See Below) Other HEENT History: wears glasses Cardiovascular History: Reports: Hypertension Respiratory History: Reports: None, Other (See Below) Other Respiratory History: Smoker x 42 years Gastrointestinal History: Reports: None Genitourinary History: Reports: None HOSPITAL PHARMACY DIRECTOR History: Reports: None Musculoskeletal History: Reports: None Neurological History: Reports: None Psychiatric History: Reports: Depression Endocrine/Metabolic History: Reports: None Hematologic History: Reports: None Immunologic History: Reports: None Oncologic (Cancer) History: Reports: None Dermatologic History: Reports: None - Infectious Disease History Infectious Disease History: Reports: None, Other (See Below) Other Infectious Disease History: Pt unsure - Past Surgical History Head Surgeries/Procedures: Reports: None HEENT Surgical History: Reports: None Cardiovascular Surgical History: Reports: None Respiratory Surgical History: Reports: None GI Surgical History: Reports: None Female Surgical History: Reports: None Musculoskeletal Surgical History: Reports: Shoulder Surgery Other Musculoskeletal Surgeries/Procedures:: left shoulder dislocation Social & Family History - Family History Family Medical History: No Pertinent Family History - Tobacco Use Tobacco Use Status *Q: Former Tobacco User Years of Tobacco use: 42 Used Tobacco, but Quit: Yes Month/Year Tobacco Last Used: 05/05/2018 - Caffeine Use Caffeine Use: Reports: None - Alcohol Use Days Per Week of Alcohol Use: 2 Number of Drinks Per Day: 1 Total Drinks Per Week: 2 - Recreational Drug Use Recreational Drug Use: No - Living Situation & Occupation Living situation: Reports: with Family ED ROS GENERAL - Review of Systems Review Of Systems: Comprehensive ROS is negative, except as noted in HPI. ED EXAM, GENERAL - Physical Exam Exam: See Below Exam Limited By: No Limitations General Appearance: Alert, Mild Distress Eye Exam: Bilateral Eye: EOMI, PERRL Ears: Normal External Exam, Hearing Grossly Normal Nose: Normal Inspection Throat/Mouth: Normal Inspection Head: Atraumatic, Normocephalic Neck: Normal Inspection Respiratory/Chest: No Respiratory Distress, Decreased Breath Sounds, Rales (bases). No: Accessory Muscle Use Cardiovascular: Normal Peripheral Pulses, Regular Rate, Rhythm, No Edema GI/Abdominal: Normal Bowel Sounds, Soft, Non-Tender Rectal (Female) Exam: Heme - Stool. No: Hemorrhoids Extremities: Normal Inspection, Normal Range of Motion Neurological: Alert, Oriented, Normal Cognition Psychiatric: Normal Affect Skin Exam: Warm, Dry, Pallor. No: Jaundice Course - Vital Signs Last Recorded V/S: Last Vital Signs Temp 98.5 F 10/19/20 04:56 Pulse 79 10/19/20 04:56 Resp 20 10/19/20 04:56 BP 117/67 10/19/20 04:56 Pulse Ox 94 L 10/18/20 22:53 - Orders/Labs/Meds Orders: Active Orders 24 hr Category Date Time Status CULTURE BLOOD [BC] Stat Lab 10/18/20 23:40 Received Transfuse RBC [Transfuse Red Blood Cells] [COMM] Stat Oth 10/19/20 00:14 Ordered Labs: Laboratory Tests 10/18/20 10/18/20 10/18/20 Range/Units 23:40 23:40 23:40 WBC 14.8 H (5.0-10.0) 10^3/uL RBC 2.88 L (4.2-5.4) 10^6/uL Hgb 5.7 L* D (12.0-16.0) g/dL Hct 20.4 L* (37.0-47.0) % MCV 70.8 L D (80-100) fL MCH 19.8 L (27.0-34.0) pg MCHC 27.9 L (33.0-35.0) g/dL Plt Count 206 D (150-450) 10^3/uL Neut % (Auto) 86.8 H (42.2-75.2) % Lymph % (Auto) 5.6 L (20.5-50.1) % [place] % (Auto) 7.5 (2-8) % Eos % (Auto) 0.0 L (1.0-3.0) % Baso % (Auto) 0.1 (0.0-1.0) % Sodium 135 L (136-145) mmol/L Potassium 3.7 (3.5-5.1) mmol/L Chloride 100 (98-107) mmol/L Carbon Dioxide 26 (21-32) mmol/L Anion Gap 12.7 (7-13) mEq/L BUN 13 (7-18) mg/dL Creatinine 0.81 (0.55-1.02) mg/dL Est Cr Clr Drug Dosing 51.06 mL/min Estimated GFR (MDRD) > 60 BUN/Creatinine Ratio 16.0 (No establ ref range) Glucose 156 H (70-99) mg/dL Lactic Acid 1.3 (0.4-2.0) mmol/L Calcium 8.1 L (8.5-10.1) mg/dL Total Bilirubin 0.9 (0.2-1.0) mg/dL AST 30 (15-37) U/L ALT 33 (14-59) U/L Alkaline Phosphatase 78 (46-116) U/L Troponin I High Sens 15 (<=51) pg/mL B-Natriuretic Peptide 87 (0-100) pg/ml Total Protein 7.4 (6.4-8.2) g/dL Albumin 2.8 L (3.4-5.0) g/dL Globulin 4.6 Albumin/Globulin Ratio 0.61 SARS-CoV-2 RNA ([place]) (NEGATIVE) Blood Type Gel Antibody Screen Crossmatch 10/18/20 10/19/20 Range/Units 23:40 03:07 WBC (5.0-10.0) 10^3/uL RBC (4.2-5.4) 10^6/uL Hgb (12.0-16.0) g/dL Hct (37.0-47.0) % MCV (80-100) fL MCH (27.0-34.0) pg MCHC (33.0-35.0) g/dL Plt Count (150-450) 10^3/uL Neut % (Auto) (42.2-75.2) % Lymph % (Auto) (20.5-50.1) % [place] % (Auto) (2-8) % Eos % (Auto) (1.0-3.0) % Baso % (Auto) (0.0-1.0) % Sodium (136-145) mmol/L Potassium (3.5-5.1) mmol/L Chloride (98-107) mmol/L Carbon Dioxide (21-32) mmol/L Anion Gap (7-13) mEq/L BUN (7-18) mg/dL Creatinine (0.55-1.02) mg/dL Est Cr Clr Drug Dosing mL/min Estimated GFR (MDRD) BUN/Creatinine Ratio (No establ ref range) Glucose (70-99) mg/dL Lactic Acid (0.4-2.0) mmol/L Calcium (8.5-10.1) mg/dL Total Bilirubin (0.2-1.0) mg/dL AST (15-37) U/L ALT (14-59) U/L Alkaline Phosphatase (46-116) U/L Troponin I High Sens (<=51) pg/mL B-Natriuretic Peptide (0-100) pg/ml Total Protein (6.4-8.2) g/dL Albumin (3.4-5.0) g/dL Globulin Albumin/Globulin Ratio SARS-CoV-2 RNA ([place]) Negative (NEGATIVE) Blood Type O POSITIVE Gel Antibody Screen Negative Crossmatch See Detail Meds: Medications Discontinued Medications Generic Name Dose Route Start Last Admin Trade Name Freq PRN Reason Stop Dose Admin Albuterol/Ipratropium 3 ml 10/19/20 01:17 10/19/20 01:26 Albuterol/Ipratropium 3.0-0.5 Mg/3 Ml Neb Soln NEB 10/19/20 01:18 3 ml ONETIME ONE Administration Levofloxacin 500 mg 10/19/20 03:30 10/19/20 03:45 Levofloxacin 500 Mg Tab PO 10/19/20 03:31 500 mg ONETIME ONE Administration Methylprednisolone Sodium Succinate 125 mg 10/19/20 01:16 10/19/20 01:26 Methylprednisolone Sodium Succinate 125 Mg/2 Ml Sdv IVPUSH 10/19/20 01:17 125 mg ONETIME ONE Administration - Re-Assessments/Exams Free Text/Narrative Re-Assessment/Exam: light dozing, Patient reporting improvment in breathing following transfusion. VSS. Occasional non productive cough. Instructed need for follow up to [facility] cause low hgb. and recheck respiratory status. patient states she will follow up with primary. Departure - Departure Time of Disposition: 05:03 Disposition: Home, Self-Care 01 Condition: Fair Clinical Impression: COPD (chronic obstructive pulmonary disease) with acute bronchitis Pneumonia Qualifiers: Pneumonia type: due to unspecified organism Laterality: bilateral Lung location: lower lobe of lung Qualified Code(s): J18.9 - Pneumonia, unspecified organism Anemia Qualifiers: Anemia type: unspecified type Qualified Code(s): D64.9 - Anemia, unspecified - Discharge Information *PRESCRIPTION DRUG MONITORING PROGRAM REVIEWED*: No *COPY OF PRESCRIPTION DRUG MONITORING REPORT IN PATIENT GIANLUCA: No Instructions: Chronic Obstructive Pulmonary Disease, [id number], Community- Acquired Pneumonia, Adult, [id number] Referrals: Luis Candelario [Primary Care Provider] - Forms: ED Department Discharge Additional Instructions: levaquin 500mg one daily for one week prednisone 10mg 2 x 2 days then one daily x 3 days clinic follow up this week, recheck HGB on friday- call to schedule Urgent follow up symptoms worsen, increased difficulty breathing, fever, weakness vomiting or blood in stool. Sepsis Event Note (ED) - Evaluation Sepsis Screening Result: No Definite Risk - My Orders Last 24 Hours: My Active Orders 10/18/20 23:40 CULTURE BLOOD [BC] Stat 10/19/20 00:14 Transfuse RBC [Transfuse Red Blood Cells] [COMM] Stat - Assessment/Plan Last 24 Hours: My Active Orders 10/18/20 23:40 CULTURE BLOOD [BC] Stat 10/19/20 00:14 Transfuse RBC [Transfuse Red Blood Cells] [COMM] Stat
[2020-10-19 04:56] VITALS: BP 117/67; PULSE 79
== END 2020-10-19 05:16 | disposition home or self-care (01) ==
LOC: DL.ED 22:53
DX: J18.9 Pneumonia, unspecified organism (principal); J44.9 Chronic obstructive pulmonary disease, unspecified; J20.9 Acute bronchitis, unspecified; D64.9 Anemia, unspecified; I10 Essential (primary) hypertension; Z79.82 Long term (current) use of aspirin; Z87.891 Personal history of nicotine dependence; Z20.822 Contact with and (suspected) exposure to COVID-19
CPT/HCPCS: 36415; 36430; 71045; 80053; 82272; 83605; 83880; 84484; 85025; 86850; 86900; 86901; 86920; 86922; 87040; 93005; 96374; 99284; 99285-25; A9270-GY; J2930; J7620-GY; P9016; U0002

== ENCOUNTER 2020-11-23 01:12 | Emergency (ER) | payer MEDICAID ==
[~2020-11-23 01:12] MED LIST: Iopamidol 612 MG/ML 100 ML Bottle IVPUSH ONE; LORazepam 2 MG/ML SDV IV ONE
[2020-11-23] MEDS ORDERED: Levofloxacin 500 MG Tab PO ONE (03:19)
[2020-11-23] MEDS ORDERED: Levofloxacin/Dextrose 5%-Water 500 MG in Premix Bag 1 BAG IV ONE (03:38)
[2020-11-23] MEDS ORDERED: Pantoprazole 40 MG Vial IVPUSH ONE (04:14)
[2020-11-23 04:32] LABS: AMPHETAMINES,URINE NEGATIVE (NEGATIVE); BARBITURATES,URINE NEGATIVE (NEGATIVE); BENZODIAZEPINE,URINE NEGATIVE (NEGATIVE); MDMA (ECSTASY), URINE NEGATIVE (NEGATIVE); METHADONE,URINE NEGATIVE (NEGATIVE); METHAMPHETAMINES,URINE NEGATIVE (NEGATIVE); OPIATES,URINE NEGATIVE (NEGATIVE); OXYCODONE,URINE NEGATIVE (NEGATIVE); PHENCYCLIDINE,URINE NEGATIVE (NEGATIVE); TCA,URINE NEGATIVE (NEGATIVE)
[2020-11-23 04:38] LABS: ANION GAP 13.9 mEq/L (7-13); CHLORIDE,CL 95 mmol/L (98-107); SODIUM,NA 130 mmol/L (136-145)
[2020-11-23] MEDS ORDERED: Sodium Chloride 0.9% 1,000 ML IV ONE (05:01)
[2020-11-23 06:05] VITALS: BP 98/75; PULSE 73
--- NOTE | 2020-11-23 06:22 | CR ---
PROCEDURE INFORMATION: Exam: XR Chest Exam date and time: 11/23/2020 5:59 AM Age: 64 years old Clinical indication: Other: Hypoxia, SOB; Additional info: Hypoxia, anemia TECHNIQUE: Imaging protocol: XR of the chest. Views: 1 view. COMPARISON: CR Chest 1V Frontal 10/18/2020 11:29 PM FINDINGS: Lungs: Mild improvement without resolution of bibasilar pulmonary infiltrates . Stable right mid lung pulmonary nodule. Pleural spaces: Unremarkable. No pleural effusion. No pneumothorax. Heart/Mediastinum: Unremarkable. No cardiomegaly. Bones/joints: Unremarkable. IMPRESSION: 1. Mild improvement without resolution of bibasilar pulmonary infiltrates . 2. Stable right mid lung pulmonary nodule.
--- NOTE | 2020-11-24 08:26 | CT ---
PROCEDURE INFORMATION: Exam: CT Head Without Contrast Exam date and time: 11/23/2020 12:52 AM Age: 64 years old Clinical indication: Other: Confusion; Additional info: Confusion, abdominal pain TECHNIQUE: Imaging protocol: Computed tomography of the head without contrast. Radiation optimization: All CT scans at this facility use at least one of these dose optimization techniques: automated exposure control; mA and/or kV adjustment per patient size (includes targeted exams where dose is matched to clinical indication); or iterative reconstruction. COMPARISON: CT Head wo Cont 03/26/2019 9:49 AM FINDINGS: Brain: No extra-axial fluid collection; There is mild parenchymal atrophy and chronic small vessel disease. No acute infarct or hemorrhage. Cerebral ventricles: No ventriculomegaly. Paranasal sinuses: Paranasal sinuses are clear. No air-fluid level. Mastoid air cells: Visualized mastoid air cells are clear. Bones/joints: No calvarial or skull base fracture. Soft tissues: Unremarkable. Other findings: The examination is limited by patient motion. IMPRESSION: 1. The examination is limited by patient motion. 2. No calvarial or skull base fracture. 3. No acute infarct or hemorrhage. 4. Mild parenchymal atrophy and chronic small vessel disease.
--- NOTE | 2020-11-24 08:27 | CT ---
PROCEDURE INFORMATION: Exam: CT Abdomen And Pelvis With Contrast Exam date and time: 11/23/2020 12:52 AM Age: 64 years old Clinical indication: Abdominal pain; Generalized; Additional info: Confusion, abdominal pain TECHNIQUE: Imaging protocol: Computed tomography of the abdomen and pelvis with contrast. Radiation optimization: All CT scans at this facility use at least one of these dose optimization techniques: automated exposure control; mA and/or kV adjustment per patient size (includes targeted exams where dose is matched to clinical indication); or iterative reconstruction. Contrast material: ISOVUE 300; Contrast volume: 75 ml; Contrast route: INTRAVENOUS (IV); COMPARISON: CT Chest wo Cont 12/28/2018 1:29 PM FINDINGS: Lungs: There are scattered ground-glass opacities at the periphery of both lungs which may be seen in pneumonia or COVID-19. Liver: There is cirrhotic morphology of the liver. Gallbladder and bile ducts: There is marked gallbladder dilation. Common duct measures 1.4 cm. Pancreas: Pancreas is normal. Spleen: Spleen is normal. Adrenal glands: Normal. No mass. Kidneys and ureters: Kidneys are normal. Stomach and bowel: Unremarkable. No obstruction. No mucosal thickening. Appendix: No evidence of appendicitis. Intraperitoneal space: Unremarkable. No free air. No significant fluid collection. Vasculature: Mild atherosclerotic disease of the aorta without aneurysm. Lymph nodes: Unremarkable. No enlarged lymph nodes. Urinary bladder: Unremarkable as visualized. Reproductive: Unremarkable as visualized. Bones/joints: Unremarkable. No acute fracture. Soft tissues: Unremarkable. Other findings: The examination is limited by patient motion. IMPRESSION: 1. The examination is limited by patient motion. 2. There are scattered ground-glass opacities at the periphery of both lungs which may be seen in pneumonia or COVID-19. 3. Cirrhosis. 4. Marked dilation of the gallbladder and common duct. Consider further evaluation with right upper quadrant ultrasound. 5. Mild atherosclerotic disease of the aorta without aneurysm.
--- NOTE | 2020-11-28 02:13 | EDM.PDOC ---
ED HPI GENERAL MEDICAL PROBLEM - General Chief Complaint: Gastrointestinal Problem Stated Complaint: LIGHT HEADED Time Seen by Provider: 11/23/20 01:50 Source of Information: Reports: Patient History Limitations: Reports: No Limitations - History of Present Illness INITIAL COMMENTS - FREE TEXT/NARRATIVE: ED with c/o abdominal mid epigastric pain. Denies fever. States has been peeing and pooping blood past day. Uniknown if fever. Nausea at times. HX GI bleed in past. C/o feeling light headed, worse with positional change - Related Data Allergies Allergy/AdvReac Type Severity Reaction Status Date / Time No Known Allergies Allergy Verified 09/20/17 15:02 Home Meds: Home Meds Aspirin 81 mg PO DAILY 06/07/13 [History] FLUoxetine HCl [Fluoxetine HCl] 3 cap PO DAILY 07/26/14 [History] Lisinopril 15 tab PO DAILY 07/27/14 [History] Albuterol Sulfate [Proair Hfa] 8.5 gm IH ASDIRECTED 03/26/19 [History] Budesonide [Pulmicort] 0.5 mg IH BID 03/26/19 [History] Cholecalciferol (Vitamin D3) [Vitamin D3] 1,000 unit PO DAILY 03/26/19 [History] Ergocalciferol (Vitamin D2) [Vitamin D2] 50 mcg PO WEEKLY 03/26/19 [History] Formoterol Fumarate [Perforomist] 20 mcg IH BID 03/26/19 [History] Tiotropium [Spiriva] 18 mcg INH BID 03/26/19 [History] Past Medical History HEENT History: Reports: None, Other (See Below) Other HEENT History: wears glasses Cardiovascular History: Reports: Hypertension Respiratory History: Reports: None, Other (See Below) Other Respiratory History: Smoker x 42 years Gastrointestinal History: Reports: None Genitourinary History: Reports: None DIRECTOR OF PROVIDER RELATIONS History: Reports: None Musculoskeletal History: Reports: None Neurological History: Reports: None Psychiatric History: Reports: Depression Endocrine/Metabolic History: Reports: None Hematologic History: Reports: None Immunologic History: Reports: None Oncologic (Cancer) History: Reports: None Dermatologic History: Reports: None - Infectious Disease History Infectious Disease History: Reports: Other (See Below) Other Infectious Disease History: Pt unsure - Past Surgical History Head Surgeries/Procedures: Reports: None HEENT Surgical History: Reports: None Cardiovascular Surgical History: Reports: None Respiratory Surgical History: Reports: None GI Surgical History: Reports: None Female Surgical History: Reports: None Musculoskeletal Surgical History: Reports: Shoulder Surgery Other Musculoskeletal Surgeries/Procedures:: left shoulder dislocation Social & Family History - Family History Family Medical History: No Pertinent Family History - Tobacco Use Tobacco Use Status *Q: Former Tobacco User Used Tobacco, but Quit: Yes Month/Year Tobacco Last Used: 05/25 - Caffeine Use Caffeine Use: Reports: Coffee - Recreational Drug Use Recreational Drug Use: No - Living Situation & Occupation Living situation: Reports: with Family ED ROS GENERAL - Review of Systems Review Of Systems: Comprehensive ROS is negative, except as noted in HPI. ED EXAM, GI/ABD - Physical Exam Exam: See Below Exam Limited By: No Limitations General Appearance: Alert, Mild Distress Eyes: Bilateral: Normal Appearance, Pale Conjunctiva #1 Interpretation EKG Date: 11/22/20 Time: 23:53 Rhythm: NSR Rate (Beats/Min): 73 Hoffman: RAD-Right Hoffman Deviation P-Wave: Present QRS: Normal ST-T: Normal Comparison: NA - No Prior EKG Course - Vital Signs Last Recorded V/S: Last Vital Signs Temp 36.8 F L 11/23/20 06:03 Pulse 73 11/23/20 06:03 Resp 20 11/23/20 06:03 BP 98/75 11/23/20 06:03 Pulse Ox 97 11/23/20 01:53 - Orders/Labs/Meds Labs: Laboratory Tests 11/22/20 11/22/20 11/22/20 Range/Units 23:45 23:45 23:45 WBC 5.6 (5.0-10.0) 10^3/uL RBC 3.20 L (4.2-5.4) 10^6/uL Hgb 7.3 L D (12.0-16.0) g/dL Hct 25.2 L (37.0-47.0) % MCV 78.8 L D (80-100) fL MCH 22.8 L (27.0-34.0) pg MCHC 29.0 L (33.0-35.0) g/dL Plt Count 165 (150-450) 10^3/uL Neut % (Auto) 40.4 L (42.2-75.2) % Lymph % (Auto) 44.4 (20.5-50.1) % [place] % (Auto) 10.2 H (2-8) % Eos % (Auto) 3.4 H (1.0-3.0) % Baso % (Auto) 1.6 H (0.0-1.0) % PT (9.0-12.0) SEC INR (0.9-1.2) Sodium 130 L (136-145) mmol/L Potassium 3.9 (3.5-5.1) mmol/L Chloride 95 L (98-107) mmol/L Carbon Dioxide 25 (21-32) mmol/L Anion Gap 13.9 H (7-13) mEq/L BUN 7 (7-18) mg/dL Creatinine 0.63 (0.55-1.02) mg/dL Est Cr Clr Drug Dosing TNP Estimated GFR (MDRD) > 60 BUN/Creatinine Ratio 11.1 (No establ ref range) Glucose 123 H (70-99) mg/dL Lactic Acid (0.4-2.0) mmol/L Calcium 8.0 L (8.5-10.1) mg/dL Magnesium 1.7 L (1.8-2.4) mg/dL Total Bilirubin 0.3 (0.2-1.0) mg/dL AST 109 H (15-37) U/L ALT 71 H (14-59) U/L Alkaline Phosphatase 105 (46-116) U/L Ammonia (11-32) umol/L Troponin I High Sens 7 (<=51) pg/mL B-Natriuretic Peptide 93 (0-100) pg/ml Total Protein 7.8 (6.4-8.2) g/dL Albumin 3.2 L (3.4-5.0) g/dL Globulin 4.6 g/dL Albumin/Globulin Ratio 0.70 Amylase 170 H (25-115) U/L Lipase 327 (73-393) U/L Urine Color Light yellow (YELLOW) Urine Appearance Slightly cloudy (CLEAR) Urine pH 5.5 (5.0-9.0) Ur Specific [place] 1.010 (1.005-1.030) Urine Protein Negative (NEGATIVE) Urine Glucose (UA) Negative (NEGATIVE) Urine Ketones Negative (NEGATIVE) Urine Occult Blood Small H (NEGATIVE) Urine Nitrite Negative (NEGATIVE) Urine Bilirubin Negative (NEGATIVE) Urine Urobilinogen 0.2 (0.2-1.0) mg/dL Ur Leukocyte Esterase Trace H (NEGATIVE) U Hyaline Cast (Auto) Cancelled Urine RBC 10-20 H /HPF Urine WBC 10-20 H (0-5/HPF) /HPF Ur Epithelial Cells Moderate H (NOT SEEN) /HPF Calcium Phosphate Cryst Cancelled Calcium Oxalate Crystal Cancelled Uric Acid Crystals Cancelled Triple Phos Crystals Cancelled Other Crystals Cancelled Amorphous Sediment Rare (NOT SEEN) /HPF Urine Bacteria Few (0-FEW/HPF) /HPF Hyaline Casts Cancelled Granular Casts Cancelled Granular Casts (Auto) Cancelled Fine Granular Casts Cancelled Coarse Granular Casts Cancelled Urine Mucus Few H (NOT SEEN) /LPF Urine Other Cancelled Urine Trichomonas Cancelled Urine Yeast Cancelled Urinalysis Comment Cancelled Urine Opiates Screen (NEGATIVE) Ur Oxycodone Screen (NEGATIVE) Urine Methadone Screen (NEGATIVE) Ur Barbiturates Screen (NEGATIVE) U Tricyclic Antidepress (NEGATIVE) Ur Phencyclidine Scrn (NEGATIVE) Ur Amphetamine Screen (NEGATIVE) U Methamphetamines Scrn (NEGATIVE) Urine MDMA Screen (NEGATIVE) U Benzodiazepines Scrn (NEGATIVE) Urine Cocaine Screen (NEGATIVE) U Marijuana (THC) Screen (NEGATIVE) Ethyl Alcohol 286 (0) mg/dL SARS-CoV-2 RNA (ERICA) (NEGATIVE) Blood Type Gel Antibody Screen Crossmatch 11/22/20 11/22/20 11/22/20 Range/Units 23:45 23:45 23:45 WBC (5.0-10.0) 10^3/uL RBC (4.2-5.4) 10^6/uL Hgb (12.0-16.0) g/dL Hct (37.0-47.0) % MCV (80-100) fL MCH (27.0-34.0) pg MCHC (33.0-35.0) g/dL Plt Count (150-450) 10^3/uL Neut % (Auto) (42.2-75.2) % Lymph % (Auto) (20.5-50.1) % Haskell % (Auto) (2-8) % Eos % (Auto) (1.0-3.0) % Baso % (Auto) (0.0-1.0) % PT (9.0-12.0) SEC INR (0.9-1.2) Sodium (136-145) mmol/L Potassium (3.5-5.1) mmol/L Chloride (98-107) mmol/L Carbon Dioxide (21-32) mmol/L Anion Gap (7-13) mEq/L BUN (7-18) mg/dL Creatinine (0.55-1.02) mg/dL Est Cr Clr Drug Dosing Estimated GFR (MDRD) BUN/Creatinine Ratio (No establ ref range) Glucose (70-99) mg/dL Lactic Acid 1.1 (0.4-2.0) mmol/L Calcium (8.5-10.1) mg/dL Magnesium (1.8-2.4) mg/dL Total Bilirubin (0.2-1.0) mg/dL AST (15-37) U/L ALT (14-59) U/L Alkaline Phosphatase (46-116) U/L Ammonia (11-32) umol/L Troponin I High Sens (<=51) pg/mL B-Natriuretic Peptide (0-100) pg/ml Total Protein (6.4-8.2) g/dL Albumin (3.4-5.0) g/dL Globulin g/dL Albumin/Globulin Ratio Amylase (25-115) U/L Lipase (73-393) U/L Urine Color (YELLOW) Urine Appearance (CLEAR) Urine pH (5.0-9.0) Ur Specific [place] (1.005-1.030) Urine Protein (NEGATIVE) Urine Glucose (UA) (NEGATIVE) Urine Ketones (NEGATIVE) Urine Occult Blood (NEGATIVE) Urine Nitrite (NEGATIVE) Urine Bilirubin (NEGATIVE) Urine Urobilinogen (0.2-1.0) mg/dL Ur Leukocyte Esterase (NEGATIVE) U Hyaline Cast (Auto) Urine RBC /HPF Urine WBC (0-5/HPF) /HPF Ur Epithelial Cells (NOT SEEN) /HPF Calcium Phosphate Cryst Calcium Oxalate Crystal Uric Acid Crystals Triple Phos Crystals Other Crystals Amorphous Sediment (NOT SEEN) /HPF Urine Bacteria (0-FEW/HPF) /HPF Hyaline Casts Granular Casts Granular Casts (Auto) Fine Granular Casts Coarse Granular Casts Urine Mucus (NOT SEEN) /LPF Urine Other Urine Trichomonas Urine Yeast Urinalysis Comment Urine Opiates Screen Negative (NEGATIVE) Ur Oxycodone Screen Negative (NEGATIVE) Urine Methadone Screen Negative (NEGATIVE) Ur Barbiturates Screen Negative (NEGATIVE) U Tricyclic Antidepress Negative (NEGATIVE) Ur Phencyclidine Scrn Negative (NEGATIVE) Ur Amphetamine Screen Negative (NEGATIVE) U Methamphetamines Scrn Negative (NEGATIVE) Urine MDMA Screen Negative (NEGATIVE) U Benzodiazepines Scrn Negative (NEGATIVE) Urine Cocaine Screen Negative (NEGATIVE) U Marijuana (THC) Screen Negative (NEGATIVE) Ethyl Alcohol (0) mg/dL SARS-CoV-2 RNA (ERICA) Negative (NEGATIVE) Blood Type Gel Antibody Screen Crossmatch 11/22/20 11/22/20 11/22/20 Range/Units 23:45 23:45 23:45 WBC (5.0-10.0) 10^3/uL RBC (4.2-5.4) 10^6/uL Hgb (12.0-16.0) g/dL Hct (37.0-47.0) % MCV (80-100) fL MCH (27.0-34.0) pg MCHC (33.0-35.0) g/dL Plt Count (150-450) 10^3/uL Neut % (Auto) (42.2-75.2) % Lymph % (Auto) (20.5-50.1) % Haskell % (Auto) (2-8) % Eos % (Auto) (1.0-3.0) % Baso % (Auto) (0.0-1.0) % PT 11.1 (9.0-12.0) SEC INR 1.1 (0.9-1.2) Sodium (136-145) mmol/L Potassium (3.5-5.1) mmol/L Chloride (98-107) mmol/L Carbon Dioxide (21-32) mmol/L Anion Gap (7-13) mEq/L BUN (7-18) mg/dL Creatinine (0.55-1.02) mg/dL Est Cr Clr Drug Dosing Estimated GFR (MDRD) BUN/Creatinine Ratio (No establ ref range) Glucose (70-99) mg/dL Lactic Acid (0.4-2.0) mmol/L Calcium (8.5-10.1) mg/dL Magnesium (1.8-2.4) mg/dL Total Bilirubin (0.2-1.0) mg/dL AST (15-37) U/L ALT (14-59) U/L Alkaline Phosphatase (46-116) U/L Ammonia 24 (11-32) umol/L Troponin I High Sens (<=51) pg/mL B-Natriuretic Peptide (0-100) pg/ml Total Protein (6.4-8.2) g/dL Albumin (3.4-5.0) g/dL Globulin g/dL Albumin/Globulin Ratio Amylase (25-115) U/L Lipase (73-393) U/L Urine Color (YELLOW) Urine Appearance (CLEAR) Urine pH (5.0-9.0) Ur Specific [place] (1.005-1.030) Urine Protein (NEGATIVE) Urine Glucose (UA) (NEGATIVE) Urine Ketones (NEGATIVE) Urine Occult Blood (NEGATIVE) Urine Nitrite (NEGATIVE) Urine Bilirubin (NEGATIVE) Urine Urobilinogen (0.2-1.0) mg/dL Ur Leukocyte Esterase (NEGATIVE) U Hyaline Cast (Auto) Urine RBC /HPF Urine WBC (0-5/HPF) /HPF Ur Epithelial Cells (NOT SEEN) /HPF Calcium Phosphate Cryst Calcium Oxalate Crystal Uric Acid Crystals Triple Phos Crystals Other Crystals Amorphous Sediment (NOT SEEN) /HPF Urine Bacteria (0-FEW/HPF) /HPF Hyaline Casts Granular Casts Granular Casts (Auto) Fine Granular Casts Coarse Granular Casts Urine Mucus (NOT SEEN) /LPF Urine Other Urine Trichomonas Urine Yeast Urinalysis Comment Urine Opiates Screen (NEGATIVE) Ur Oxycodone Screen (NEGATIVE) Urine Methadone Screen (NEGATIVE) Ur Barbiturates Screen (NEGATIVE) U Tricyclic Antidepress (NEGATIVE) Ur Phencyclidine Scrn (NEGATIVE) Ur Amphetamine Screen (NEGATIVE) U Methamphetamines Scrn (NEGATIVE) Urine MDMA Screen (NEGATIVE) U Benzodiazepines Scrn (NEGATIVE) Urine Cocaine Screen (NEGATIVE) U Marijuana (THC) Screen (NEGATIVE) Ethyl Alcohol (0) mg/dL SARS-CoV-2 RNA (ERICA) (NEGATIVE) Blood Type O POSITIVE Gel Antibody Screen Negative Crossmatch See Detail 11/23/20 Range/Units 05:15 WBC (5.0-10.0) 10^3/uL RBC (4.2-5.4) 10^6/uL Hgb 6.3 L* (12.0-16.0) g/dL Hct 21.7 L (37.0-47.0) % MCV (80-100) fL MCH (27.0-34.0) pg MCHC (33.0-35.0) g/dL Plt Count (150-450) 10^3/uL Neut % (Auto) (42.2-75.2) % Lymph % (Auto) (20.5-50.1) % [place] % (Auto) (2-8) % Eos % (Auto) (1.0-3.0) % Baso % (Auto) (0.0-1.0) % PT (9.0-12.0) SEC INR (0.9-1.2) Sodium (136-145) mmol/L Potassium (3.5-5.1) mmol/L Chloride (98-107) mmol/L Carbon Dioxide (21-32) mmol/L Anion Gap (7-13) mEq/L BUN (7-18) mg/dL Creatinine (0.55-1.02) mg/dL Est Cr Clr Drug Dosing Estimated GFR (MDRD) BUN/Creatinine Ratio (No establ ref range) Glucose (70-99) mg/dL Lactic Acid (0.4-2.0) mmol/L Calcium (8.5-10.1) mg/dL Magnesium (1.8-2.4) mg/dL Total Bilirubin (0.2-1.0) mg/dL AST (15-37) U/L ALT (14-59) U/L Alkaline Phosphatase (46-116) U/L Ammonia (11-32) umol/L Troponin I High Sens (<=51) pg/mL B-Natriuretic Peptide (0-100) pg/ml Total Protein (6.4-8.2) g/dL Albumin (3.4-5.0) g/dL Globulin g/dL Albumin/Globulin Ratio Amylase (25-115) U/L Lipase (73-393) U/L Urine Color (YELLOW) Urine Appearance (CLEAR) Urine pH (5.0-9.0) Ur Specific [place] (1.005-1.030) Urine Protein (NEGATIVE) Urine Glucose (UA) (NEGATIVE) Urine Ketones (NEGATIVE) Urine Occult Blood (NEGATIVE) Urine Nitrite (NEGATIVE) Urine Bilirubin (NEGATIVE) Urine Urobilinogen (0.2-1.0) mg/dL Ur Leukocyte Esterase (NEGATIVE) U Hyaline Cast (Auto) Urine RBC /HPF Urine WBC (0-5/HPF) /HPF Ur Epithelial Cells (NOT SEEN) /HPF Calcium Phosphate Cryst Calcium Oxalate Crystal Uric Acid Crystals Triple Phos Crystals Other Crystals Amorphous Sediment (NOT SEEN) /HPF Urine Bacteria (0-FEW/HPF) /HPF Hyaline Casts Granular Casts Granular Casts (Auto) Fine Granular Casts Coarse Granular Casts Urine Mucus (NOT SEEN) /LPF Urine Other Urine Trichomonas Urine Yeast Urinalysis Comment Urine Opiates Screen (NEGATIVE) Ur Oxycodone Screen (NEGATIVE) Urine Methadone Screen (NEGATIVE) Ur Barbiturates Screen (NEGATIVE) U Tricyclic Antidepress (NEGATIVE) Ur Phencyclidine Scrn (NEGATIVE) Ur Amphetamine Screen (NEGATIVE) U Methamphetamines Scrn (NEGATIVE) Urine MDMA Screen (NEGATIVE) U Benzodiazepines Scrn (NEGATIVE) Urine Cocaine Screen (NEGATIVE) U Marijuana (THC) Screen (NEGATIVE) Ethyl Alcohol (0) mg/dL SARS-CoV-2 RNA (ERICA) (NEGATIVE) Blood Type Gel Antibody Screen Crossmatch Meds: Medications Discontinued Medications Generic Name Dose Route Start Last Admin Trade Name Freq PRN Reason Stop Dose Admin Levofloxacin/Dextrose 500 mg/ 100 mls @ 100 mls/hr 11/23/20 03:38 11/23/20 04:05 Premix IV 11/23/20 04:37 100 mls/hr ONETIME ONE Administration Sodium Chloride 1,000 mls @ 999 mls/hr 11/23/20 05:01 11/23/20 05:17 Normal Saline IV 11/23/20 06:01 999 mls/hr .BOLUS ONE Administration Iopamidol 100 ml 11/23/20 01:00 11/23/20 01:16 Iopamidol 612 Mg/Ml 100 Ml Bottle IVPUSH 11/23/20 01:01 75 ml ONETIME ONE Administration Levofloxacin 500 mg 11/23/20 03:19 Levofloxacin 500 Mg Tab PO 11/23/20 03:20 ONETIME ONE Lorazepam 1 mg 11/23/20 00:33 Lorazepam 2 Mg/Ml Sdv IV 11/23/20 00:34 .STK-MED ONE Lorazepam 1 mg 11/23/20 01:07 Lorazepam 2 Mg/Ml Sdv IV 11/23/20 01:08 .STK-MED ONE Pantoprazole Sodium 80 mg 11/23/20 04:14 11/23/20 04:23 Pantoprazole 40 Mg Vial IVPUSH 11/23/20 04:15 80 mg .BOLUS ONE Administration Departure - Departure Disposition: DC/Tfer to Acute Hospital 02 - Discharge Information Referrals: PCP,None [Primary Care Provider] - Forms: ED Department Discharge Sepsis Event Note (ED) - Evaluation Sepsis Screening Result: No Definite Risk
== END 2020-11-23 06:18 ==
LOC: DL.ED 01:12
DX: K82.8 Other specified diseases of gallbladder (principal); J18.9 Pneumonia, unspecified organism; J44.9 Chronic obstructive pulmonary disease, unspecified; D64.9 Anemia, unspecified; I10 Essential (primary) hypertension; F10.129 Alcohol abuse with intoxication, unspecified; Z87.891 Personal history of nicotine dependence
CPT/HCPCS: 36415; 36430; 70450; 71045; 74177; 80053; 80305-QW; 80307; 81001; 82140; 82150; 82272; 83605; 83690; 83735; 83880; 84484; 85014; 85018; 85025; 85610; 86850; 86900; 86901; 86920; 86922; 87040; 87086; 96365; 96375; 99284; 99285-25; C9113; J1956; J2060; J7030; P9016; Q9967; U0002

== ENCOUNTER 2021-08-31 18:18 | Emergency (ER) | payer MEDICAID ==
[2021-08-31 19:25] LABS: ANION GAP 10.9 mEq/L (7-13); CHLORIDE,CL 103 mmol/L (98-107); SODIUM,NA 137 mmol/L (136-145)
[2021-09-01] MEDS ORDERED: Furosemide 20 MG/2 ML VIAL IVPUSH ONE (00:33)
[2021-09-01 02:47] VITALS: BP 129/55; PULSE 67
== END 2021-09-01 03:30 | disposition home or self-care (01) ==
LOC: DL.ED 18:18
DX: D64.9 Anemia, unspecified (principal); I10 Essential (primary) hypertension; Z79.899 Other long term (current) drug therapy
CPT/HCPCS: 36415; 36430; 80053; 82728; 83540; 85025; 86850; 86900; 86901; 86920; 86922; 96374; 99283; 99284-25; J1940; P9016

== ENCOUNTER 2022-07-22 10:28 | Emergency (ER) | payer MEDICARE, MEDICAID ==
[2022-07-22 11:10] LABS: ANION GAP 10.8 mEq/L (7-13); CHLORIDE,CL 105 mmol/L (98-107); SODIUM,NA 141 mmol/L (136-145)
[2022-07-22 11:12] LABS: ACETAMINOPHEN 0 ug/mL (10-30 (Therapeutic)); ESTIMATED GFR 100 mL/min (>=60)
[2022-07-22 16:32] LABS: AMPHETAMINES,URINE NEGATIVE (NEGATIVE); BARBITURATES,URINE NEGATIVE (NEGATIVE); BENZODIAZEPINE,URINE POSITIVE (NEGATIVE); MDMA (ECSTASY), URINE NEGATIVE (NEGATIVE); METHADONE,URINE NEGATIVE (NEGATIVE); METHAMPHETAMINES,URINE NEGATIVE (NEGATIVE); OPIATES,URINE NEGATIVE (NEGATIVE); OXYCODONE,URINE NEGATIVE (NEGATIVE); PHENCYCLIDINE,URINE NEGATIVE (NEGATIVE); TCA,URINE NEGATIVE (NEGATIVE)
[2022-07-22 16:33] VITALS: BP 144/61; PULSE 74
[2022-07-22] MEDS: Iopamidol 612 MG/ML 100 ML Bottle IVPUSH ONE (16:49)
== END 2022-07-22 17:20 | disposition home or self-care (01) ==
LOC: DL.ED 10:28
DX: D64.9 Anemia, unspecified (principal); I10 Essential (primary) hypertension; Z79.899 Other long term (current) drug therapy
CPT/HCPCS: 36415; 36430; 74177; 80053; 80143; 80179; 80305; 80307; 81001; 82272; 83735; 85025; 85610; 86850; 86900; 86901; 86920; 86922; 99284; P9016; Q9967

== ENCOUNTER 2022-09-26 11:42 | Emergency (ER) | payer MEDICARE, MEDICAID ==
[2022-09-26] MEDS ORDERED: Sodium Chloride 0.9% 1,000 ML IV ONE (12:21)
[2022-09-26] MEDS ORDERED: Tranexamic Acid 1,000 MG in Sodium Chloride 0.9% 100 ML IV ONE (12:28)
[2022-09-26 12:59] LABS: INR 1.8 (0.9-1.2)
[2022-09-26 16:57] VITALS: BP 99/60; PULSE 89
== END 2022-09-26 17:04 ==
LOC: DL.ED 11:42
DX: K92.2 Gastrointestinal hemorrhage, unspecified (principal); N17.9 Acute kidney failure, unspecified; I10 Essential (primary) hypertension; F17.200 Nicotine dependence, unspecified, uncomplicated; Z79.899 Other long term (current) drug therapy
CPT/HCPCS: 36415; 36430; 82140; 82272; 85610; 85730; 86850; 86900; 86901; 86920; 86922; 96365; 99285; J3490; J7030; P9016